=== PATIENT | female | born 1980 | race Two or more races ===

== ENCOUNTER 2017-03-23 20:14 | Emergency (ER) | payer MEDICARE, OTHER ==
[~2017-03-23] VITALS: Ht 172.7 cm; Wt 62.1 kg
[2017-03-23 20:20] VITALS: BP 108/61
--- NOTE | 2017-03-23 20:36 | NUR ---
TO BED 4 AMBULATORY C/O C/O LLQ ABD PAIN RADIATING TO BACK WITH PAIN BURNING AND FREQUENCY UPON URINATION SINCE YESTERDAY. URINE SAMPLE COLLECTED AND SENT TO LAB.
[2017-03-23 21:21] LABS: APPEARANCE,URINE Slightly Cloudy (CLEAR); BILIRUBIN,URINE Negative (NEGATIVE); BLOOD, URINE Trace-intact Ery/uL (NEGATIVE); COLOR,URINE Yellow (YELLOW); KETONES,URINE Negative (NEGATIVE); LEUKOCYTE ESTERASE ,URINE Moderate (NEGATIVE); NITRITE, URINE Positive (NEGATIVE); PH,URINE 5.5 (5.0-8.0); PROTEIN,URINE Negative (NEGATIVE); UGLUCOSE Negative (NEGATIVE); UROBILINOGEN,URINE 0.2 EU/dL (0.2)
[2017-03-23 21:37] LABS: BACTERIA,URINE Many /HPF (None Seen); SQUAMOUS EPITHELIAL CELL,UR Many /HPF (None Seen)
== END 2017-03-23 21:49 | disposition home or self-care (01) ==
LOC: ER 20:33
DX: N39.0 Urinary tract infection, site not specified (principal); G35 Multiple sclerosis
CPT/HCPCS: 81001; 87077; 87086; 87186; 99284; A4606; 81000-TC; Z7610

== ENCOUNTER 2017-05-18 12:45 | Emergency (ER) | payer MEDICARE, OTHER ==
[~2017-05-18] VITALS: Ht 172.7 cm; Wt 59.0 kg
[2017-05-18 12:58] VITALS: BP 103/61
[2017-05-18] MEDS ORDERED: NUEDEXTA (13:03)
[2017-05-18] MEDS ORDERED: VESICARE TAB 10MG (13:03)
[2017-05-18] MEDS ORDERED: CIPROFLOXACIN 500 MG (13:03)
[2017-05-18] MEDS ORDERED: CEPHALEXIN CAP 500MG (13:03)
== END 2017-05-18 14:27 | disposition home or self-care (01) ==
LOC: ER 12:47
DX: J06.9 Acute upper respiratory infection, unspecified (principal); N39.0 Urinary tract infection, site not specified; G35 Multiple sclerosis
CPT/HCPCS: A4606; Z7610

== ENCOUNTER 2018-02-17 10:41 | Emergency (ER) | payer MEDICARE, OTHER ==
[~2018-02-17] VITALS: Ht 170.2 cm; Wt 61.2 kg
[~2018-02-17 10:41] MED LIST: CEPHALEXIN CAP 500MG; CIPROFLOXACIN 500 MG; NUEDEXTA; VESICARE TAB 10MG
--- NOTE | 2018-02-17 10:48 | NUR ---
AAOX3, CAME TO ER C/O BILATERAL FLANK PAIN X 3 DAYS. RR IS EVEN AND UNLABORED WITH NAD NOTED. SKIN IS WARM AND DRY . AWAITING MD FOR EVAL.
--- NOTE | 2018-02-17 10:55 | NUR ---
DR MCALLISTER AT BS FOR EVAL.
[2018-02-17] MEDS ORDERED: HYDROCODONE/APAP 5/325MG 1 EACH TABLET PO ONE (11:00)
[2018-02-17] MEDS ORDERED: METOCLOPRAMIDE HCL 10 MG/2 ML VIAL IV ONE (11:00)
[2018-02-17] MEDS ORDERED: METOCLOPRAMIDE HCL 10 MG/2 ML VIAL ONE (11:02)
[2018-02-17] MEDS ORDERED: HYDROCODONE/APAP 5/325MG 1 EACH TABLET ONE (11:03)
--- NOTE | 2018-02-17 11:11 | NUR ---
URINE SPECIMEN OBTAINED , LABELED AND SENT TO LAB ,
[2018-02-17 11:12] LABS: APPEARANCE,URINE Cloudy (CLEAR); BILIRUBIN,URINE Negative (NEGATIVE); BLOOD, URINE Trace-intact Ery/uL (NEGATIVE); COLOR,URINE Yellow (YELLOW); KETONES,URINE Negative (NEGATIVE); LEUKOCYTE ESTERASE ,URINE Moderate (NEGATIVE); NITRITE, URINE Positive (NEGATIVE); PH,URINE 5.5 (5.0-8.0); PROTEIN,URINE Negative (NEGATIVE); UGLUCOSE Negative (NEGATIVE); UROBILINOGEN,URINE 0.2 EU/dL (0.2)
[2018-02-17 11:14] LABS: BASOPHILS % (AUTO) 0.4 % (0.0-2.0); EOSINOPHILS % (AUTO) 0.8 % (0.0-6.0); HEMATOCRIT 34 % (33-45); LYMPHOCYTES # (AUTO) 0.7 /CMM (0.8-4.8); LYMPHOCYTES % (AUTO) 19.6 % (20.0-44.0); MEAN CORPUSCULAR HGB CONC 33 g/dl (31.0-36.0); MEAN CORPUSCULAR VOLUME 78 fL (82-100); MONOCYTES # (AUTO) 0.2 /CMM (0.1-1.30); MONOCYTES % (AUTO) 6.1 % (2.0-12.0); NEUTROPHILS # (AUTO) 2.6 /CMM (1.8-8.9); NEUTROPHILS % (AUTO) 73.1 % (43.0-81.0); PLATELET COUNT (AUTO) 225 /CMM (150-450); RDW COEFFICIENT OF VARIATION 13.8 (11.5-15.0); RED BLOOD CELL COUNT(AUTO) 4.33 MIL/uL (4.0-5.2); WHITE BLOOD COUNT (AUTO) 3.5 K/uL (4.3-11.0)
[2018-02-17 11:25] LABS: BACTERIA,URINE 3+ /HPF (None Seen); SQUAMOUS EPITHELIAL CELL,UR Few /HPF (None Seen); WBC,URINE 21-50 /HPF (0-3)
[2018-02-17 11:25] LABS: CALCIUM, SERUM 8.8 mg/dL (8.5-10.1); CREATININE 0.6 mg/dL (0.6-1.3); POTASSIUM 3.5 mmol/L (3.5-5.1)
[2018-02-17 11:30] LABS: ALBUMIN 3.7 g/dL (3.4-5.0); BILIRUBIN,DIRECT 0.1 mg/dL (0.0-0.2); BILIRUBIN,TOTAL 0.2 mg/dL (0.2-1.0)
--- NOTE | 2018-02-17 12:52 | NUR ---
Patient discharged to home in stable condition. Written and verbal after care instructions given. Patient verbalizes understanding of instruction.IV removed. Catheter intact and site benign. Pressure and 4x4 applied to site. No bleeding noted.
[2018-02-17 12:53] VITALS: BP 110/55
== END 2018-02-17 12:53 | disposition home or self-care (01) ==
LOC: ER 10:44
DX: N39.0 Urinary tract infection, site not specified (principal); G35 Multiple sclerosis; Z60.2 Problems related to living alone
CPT/HCPCS: 36415; 80048; 80076; 81001; 83605; 83690; 84703; 85025; 87040 ×2; 87077; 87086; 87186; 96374; 99284; A4216; A4606; J2765; 81000-TC; Z7610

== ENCOUNTER 2018-08-28 16:26 | Emergency (ER) | payer MEDICARE, MEDICAID ==
[~2018-08-28] VITALS: Ht 172.7 cm; Wt 62.6 kg
--- NOTE | 2018-08-28 17:53 | NUR ---
PATIENT PRESENTED TO THE ER GENERALIZED BODY ACHES, UNSTEADY GAIT FRM MS FLARE UP. ON ROOM AIR, BREATHING EVENLY AND UNLABORED. CONNECTED TO THE MONITOR AND PULSE OX. KEPT COMFORTABLE, WILL CONTINUE TO MONITOR ACCORDINGLY.
[2018-08-28 18:24] LABS: APPEARANCE,URINE Clear (CLEAR); BILIRUBIN,URINE Negative (NEGATIVE); BLOOD, URINE Negative Ery/uL (NEGATIVE); COLOR,URINE Yellow (YELLOW); KETONES,URINE Negative (NEGATIVE); LEUKOCYTE ESTERASE ,URINE Negative (NEGATIVE); NITRITE, URINE Negative (NEGATIVE); PROTEIN,URINE Negative (NEGATIVE); UGLUCOSE Negative (NEGATIVE); UROBILINOGEN,URINE 0.2 EU/dL (0.2)
[2018-08-28] MEDS ORDERED: HYDROCODONE/APAP 10/325MG 1 EA TABLET ONE (18:25)
[2018-08-28] MEDS ORDERED: HYDROCODONE/APAP 10/325MG 1 EA TABLET PO ONE (18:30)
[2018-08-28 18:38] LABS: BASOPHILS % (AUTO) 0.3 % (0.0-2.0); EOSINOPHILS % (AUTO) 0.5 % (0.0-6.0); HEMATOCRIT 35 % (33-45); HEMOGLOBIN 11.5 g/dL (11.5-14.8); LYMPHOCYTES # (AUTO) 0.8 /CMM (0.8-4.8); LYMPHOCYTES % (AUTO) 10.7 % (20.0-44.0); MEAN CORPUSCULAR HGB CONC 33 g/dl (31.0-36.0); MEAN CORPUSCULAR VOLUME 78 fL (82-100); MONOCYTES # (AUTO) 0.3 /CMM (0.1-1.30); MONOCYTES % (AUTO) 3.7 % (2.0-12.0); NEUTROPHILS % (AUTO) 84.8 % (43.0-81.0); PLATELET COUNT (AUTO) 268 /CMM (150-450); RED BLOOD CELL COUNT(AUTO) 4.49 MIL/uL (4.0-5.2); WHITE BLOOD COUNT (AUTO) 7.1 K/uL (4.3-11.0)
[2018-08-28 19:01] LABS: CALCIUM, SERUM 8.7 mg/dL (8.5-10.1); CREATININE 0.6 mg/dL (0.6-1.3)
--- NOTE | 2018-08-28 19:10 | NUR ---
RECEIVED REPORT FROM ANTONIO HAIDER FOR [facility]
[2018-08-28] MEDS ORDERED: KETOROLAC TROMETHAMINE INJ 30 MG/ML VIAL ONE (19:16)
[2018-08-28] MEDS ORDERED: KETOROLAC TROMETHAMINE INJ 30 MG/ML VIAL IM ONE (19:30)
[2018-08-28 20:44] VITALS: BP 110/67
--- NOTE | 2018-08-28 20:45 | NUR ---
Patient discharged to home in stable condition. Written and verbal after care instructions given. Patient verbalizes understanding of instruction.
== END 2018-08-28 20:20 | disposition home or self-care (01) ==
LOC: ER 16:26
DX: M79.10 Myalgia, unspecified site (principal); G35 Multiple sclerosis; Z60.2 Problems related to living alone
CPT/HCPCS: 36415; 80048; 81001; 84703; 85025; 93005; 96372; 99284; J1885; J7030; 81000-TC

== ENCOUNTER 2019-04-16 07:58 | Emergency (ER) | payer MEDICARE, MEDICAID ==
[~2019-04-16] VITALS: Ht 172.7 cm; Wt 59.0 kg
[2019-04-16 08:05] VITALS: BP 104/68
[2019-04-16] MEDS ORDERED: diphenhydrAMINE HCL 25 MG CAPSULE ONE (08:27)
[2019-04-16] MEDS ORDERED: CEPHALEXIN MONOHYDRATE 500 MG CAPSULE PO ONE ×2 (08:27→08:30)
[2019-04-16] MEDS ORDERED: PHENAZOPYRIDINE HCL 200 MG TABLET ONE (08:27)
[2019-04-16] MEDS ORDERED: PHENAZOPYRIDINE HCL 200 MG TABLET PO ONE (08:30)
[2019-04-16] MEDS ORDERED: diphenhydrAMINE HCL 25 MG CAPSULE PO ONE (08:30)
[2019-04-16 09:07] LABS: APPEARANCE,URINE Clear (CLEAR); BILIRUBIN,URINE Negative (NEGATIVE); BLOOD, URINE Trace-lysed Ery/uL (NEGATIVE); COLOR,URINE Yellow (YELLOW); KETONES,URINE Negative (NEGATIVE); LEUKOCYTE ESTERASE ,URINE Moderate (NEGATIVE); NITRITE, URINE Negative (NEGATIVE); PH,URINE 8.5 (5.0-8.0); PROTEIN,URINE Negative (NEGATIVE); UGLUCOSE Negative (NEGATIVE); UROBILINOGEN,URINE 0.2 EU/dL (0.2)
[2019-04-16 09:10] LABS: BACTERIA,URINE Few /HPF (None Seen); WBC,URINE 0-2 /HPF (0-3)
[2019-04-16 09:11] LABS: SQUAMOUS EPITHELIAL CELL,UR Few /HPF (None Seen)
--- NOTE | 2019-04-16 09:21 | NUR ---
unable to depart from system.
== END 2019-04-16 09:23 | disposition home or self-care (01) ==
LOC: ER 08:00
DX: T78.40XA Allergy, unspecified, initial encounter (principal); N39.0 Urinary tract infection, site not specified; G35 Multiple sclerosis; Z60.2 Problems related to living alone; X58.XXXA Exposure to other specified factors, initial encounter
CPT/HCPCS: 81001; 84703; 87086; 99284; Q0163; 81000-TC; 87186-TC

== ENCOUNTER 2021-12-18 16:41 | Emergency (ER) | payer MEDICARE, OTHER ==
[~2021-12-18] VITALS: Ht 172.7 cm; Wt 66.2 kg
[~2021-12-18 16:41] MED LIST changes: +CEPH250C PO; -CEPHALEXIN CAP 500MG; -CIPROFLOXACIN 500 MG; +DALF10TA PO; -NUEDEXTA; +TOPI50TA24 PO; -VESICARE TAB 10MG
--- NOTE | 2021-12-18 16:50 | NUR ---
BIBS W/ C/O FEVER AND SOB SINCE LAST NIGHT. PT A/O X4, AMBULATORY, TO ER BED 12.
[2021-12-18 17:47] LABS: BILIRUBIN,URINE NEGATIVE (NEGATIVE); COLOR,URINE YELLOW (YELLOW); LEUKOCYTE ESTERASE ,URINE NEGATIVE (NEGATIVE); NITRITE, URINE POSITIVE (NEGATIVE); PROTEIN,URINE NEGATIVE (NEGATIVE); UGLUCOSE NEGATIVE (NEGATIVE); UROBILINOGEN,URINE 0.2 EU/dL (0.2)
[2021-12-18 18:05] LABS: BACTERIA,URINE 4+ /HPF (None Seen); SQUAMOUS EPITHELIAL CELL,UR Few /HPF (None Seen)
[2021-12-18] MEDS ORDERED: CEPH500C2 PO (18:45)
[2021-12-18 18:50] VITALS: BP 120/71
--- NOTE | 2021-12-18 18:51 | NUR ---
Patient discharged to home in stable condition. Written and verbal after care instructions given. Patient verbalizes understanding of instruction.
== END 2021-12-18 18:51 | disposition home or self-care (01) ==
LOC: ER 17:07
DX: N39.0 Urinary tract infection, site not specified (principal); Z82.49 Family history of ischemic heart disease and other diseases of the circulatory system; G35 Multiple sclerosis; Z79.899 Other long term (current) drug therapy; Z86.69 Personal history of other diseases of the nervous system and sense organs
CPT/HCPCS: 81001; 84703-TC; 87086-TC; 87186-TC; C9803

== ENCOUNTER 2022-06-13 19:18 | Emergency (ER) | payer MEDICARE, OTHER ==
[~2022-06-13] VITALS: Ht 172.7 cm; Wt 64.4 kg
[~2022-06-13 19:18] MED LIST changes: +CEPH500C2 PO
--- NOTE | 2022-06-13 21:10 | NUR ---
BIBS FOR MECH TRIP AND FALL +HT +KO S/P "MS FLARE UP, EXTREME BODY PAIN X3 WEEKS. - BLOOD THINNERS. PATIENT IS AAOX4, AMBULATES BUT CONTACT GUARD. ABLE TO MAKE NEEDS KNOWN. PLACED COMFORTABLY IN BED. VITALS CHECKED.
[2022-06-13] MEDS ORDERED: ONDANSETRON 4 MG TAB.RAPDIS SL ONE (21:30)
[2022-06-13] MEDS ORDERED: ACETAMINOPHEN ES 500 MG TABLET PO ONE (21:30)
--- NOTE | 2022-06-13 21:30 | NUR ---
[facility]IVER SIGNED BY PATIENT THAT SHE IS NOT .
--- NOTE | 2022-06-13 21:32 | NUR ---
PT TAKEN TO CT VIA [facility]
[2022-06-13] MEDS ORDERED: ACETAMINOPHEN ES 500 MG TABLET ONE (21:38)
[2022-06-13] MEDS ORDERED: ONDANSETRON 4 MG TAB.RAPDIS ONE (21:38)
--- NOTE | 2022-06-13 21:47 | NUR ---
PT RETURNED TO ER [address]
[2022-06-13] MEDS ORDERED: ONDA4TAB5 PO (22:22)
[2022-06-13 22:47] VITALS: BP 121/66
--- NOTE | 2022-06-13 22:47 | NUR ---
Patient discharged to home in stable condition. Written and verbal after care instructions given. Patient verbalizes understanding of instruction.
== END 2022-06-13 22:49 | disposition home or self-care (01) ==
LOC: ER 19:21
DX: S09.90XA Unspecified injury of head, initial encounter (principal); G35 Multiple sclerosis; F41.9 Anxiety disorder, unspecified; Z60.2 Problems related to living alone; Z79.899 Other long term (current) drug therapy; W01.0XXA Fall on same level from slipping, tripping and stumbling without subsequent striking against object, initial encounter; Y93.89 Activity, other specified; Y92.89 Other specified places as the place of occurrence of the external cause; Y99.8 Other external cause status
CPT/HCPCS: 99284; 70450; Q0162

== ENCOUNTER 2022-10-08 19:42 | Emergency (ER) | payer MEDICARE, OTHER ==
[~2022-10-08] VITALS: Ht 172.7 cm; Wt 63.5 kg
[~2022-10-08 19:42] MED LIST changes: +ONDA4TAB5 PO
--- NOTE | 2022-10-08 20:28 | NUR ---
BIBS FOR VAGINAL BLEEDING X 1 MONTH S/P 1 MONTH AGO
[2022-10-08] MEDS ORDERED: IV NS 0.9% 1,000 ML BAG IV ONE (21:30)
[2022-10-08 21:41] LABS: BASOPHILS % (AUTO) 0.2 % (0.0-2.0); EOSINOPHILS % (AUTO) 0.1 % (0.0-6.0); HEMATOCRIT 30 % (33-45); HEMOGLOBIN 9.5 g/dL (11.5-14.8); LYMPHOCYTES # (AUTO) 0.5 K/uL (0.8-4.8); LYMPHOCYTES % (AUTO) 9.3 % (20.0-44.0); MEAN CORPUSCULAR HGB CONC 32 g/dl (31.0-36.0); MEAN CORPUSCULAR VOLUME 78 fL (82-100); MONOCYTES # (AUTO) 0.3 K/uL (0.1-1.30); MONOCYTES % (AUTO) 5.2 % (2.0-12.0); NEUTROPHILS # (AUTO) 4.9 K/uL (1.8-8.9); NEUTROPHILS % (AUTO) 85.2 % (43.0-81.0); PLATELET COUNT (AUTO) 265 K/uL (150-450); RED BLOOD CELL COUNT(AUTO) 3.82 MIL/uL (4.0-5.2); WHITE BLOOD COUNT (AUTO) 5.8 K/uL (4.3-11.0)
--- NOTE | 2022-10-08 21:44 | NUR ---
US TECH AT PT'S BEDSIDE
[2022-10-08 21:51] LABS: CALCIUM, SERUM 9.4 mg/dL (8.5-10.1); CREATININE 0.6 mg/dL (0.6-1.3); POTASSIUM 3.5 mmol/L (3.5-5.1)
--- NOTE | 2022-10-08 22:09 | NUR ---
URINE COLLECTED AND SENT TO LAB
[2022-10-08 22:41] LABS: BILIRUBIN,URINE NEGATIVE (NEGATIVE); COLOR,URINE YELLOW (YELLOW); LEUKOCYTE ESTERASE ,URINE NEGATIVE (NEGATIVE); NITRITE, URINE NEGATIVE (NEGATIVE); PROTEIN,URINE NEGATIVE (NEGATIVE); UGLUCOSE NEGATIVE (NEGATIVE); UROBILINOGEN,URINE 0.2 EU/dL (0.2)
[2022-10-08 23:14] LABS: BACTERIA,URINE Rare /HPF (None Seen); RBC,URINE 21-50 /HPF (0-2); SQUAMOUS EPITHELIAL CELL,UR Rare /HPF (None Seen); WBC,URINE 0-2 /HPF (0-3)
[2022-10-08] MEDS ORDERED: KETOROLAC TROMETHAMINE INJ 30 MG/ML VIAL ONE (23:19)
[2022-10-08] MEDS ORDERED: KETOROLAC TROMETHAMINE INJ 60 MG/2 ML VIAL IM ONE (23:30)
[2022-10-08 23:32] VITALS: BP 124/70
== END 2022-10-08 23:36 | disposition home or self-care (01) ==
LOC: ER 20:11
DX: N93.8 Other specified abnormal uterine and vaginal bleeding (principal); D64.9 Anemia, unspecified; R10.2 Pelvic and perineal pain; Z79.899 Other long term (current) drug therapy
CPT/HCPCS: 99285; 96360; 76856; 96361; 85025; 80048; 81001; 36415; 85730; 84702; 96372; J1885

== ENCOUNTER 2023-05-25 19:30 | Inpatient (IN) | payer MEDICARE, OTHER ==
[~2023-05-25] VITALS: Ht 172.7 cm; Wt 62.1 kg
[2023-05-25] MEDS: IV NS 0.9% 1,000 ML BAG IV ONE (20:54)
[2023-05-25 21:07] LABS: EOSINOPHILS % (AUTO) 1.7 % (0.0-6.0); HEMATOCRIT 31 % (33-45); HEMOGLOBIN 9.9 g/dL (11.5-14.8); LYMPHOCYTES # (AUTO) 0.8 K/uL (0.8-4.8); LYMPHOCYTES % (AUTO) 28.2 % (20.0-44.0); MEAN CORPUSCULAR HEMOGLOBIN 24 PG (26.0-33.0); MEAN CORPUSCULAR HGB CONC 32 g/dl (31.0-36.0); MEAN CORPUSCULAR VOLUME 76 fL (82-100); MONOCYTES # (AUTO) 0.3 K/uL (0.1-1.30); MONOCYTES % (AUTO) 9.6 % (2.0-12.0); NEUTROPHILS # (AUTO) 1.6 K/uL (1.8-8.9); NEUTROPHILS % (AUTO) 59.5 % (43.0-81.0); PLATELET COUNT (AUTO) 226 K/uL (150-450); RED BLOOD CELL COUNT(AUTO) 4.13 MIL/uL (4.0-5.2); RED CELL DISTRIBUTION WIDTH 16.8 % (11.5-15.0); WHITE BLOOD COUNT (AUTO) 2.7 K/uL (4.3-11.0)
[2023-05-25] MEDS ORDERED: KETOROLAC TROMETHAMINE INJ 30 MG/ML VIAL ONE (21:10)
[2023-05-25] MEDS: KETOROLAC TROMETHAMINE INJ 60 MG/2 ML VIAL IM ONE (21:12)
[2023-05-25 21:18] LABS: CALCIUM, SERUM 8.9 mg/dL (8.5-10.1); CREATININE 0.6 mg/dL (0.6-1.3); POTASSIUM 3.8 mmol/L (3.5-5.1)
[2023-05-25 21:24] LABS: ALBUMIN 3.6 g/dL (3.4-5.0); BILIRUBIN,DIRECT 0.1 mg/dL (0.0-0.2); BILIRUBIN,TOTAL 0.2 mg/dL (0.2-1.0); TOTAL PROTEIN, SERUM 7.6 g/dL (6.4-8.2)
[2023-05-25 22:09] LABS: APPEARANCE,URINE CLEAR (CLEAR); BILIRUBIN,URINE NEGATIVE (NEGATIVE); BLOOD, URINE NEGATIVE Ery/uL (NEGATIVE); COLOR,URINE YELLOW (YELLOW); KETONES,URINE NEGATIVE (NEGATIVE); LEUKOCYTE ESTERASE ,URINE NEGATIVE (NEGATIVE); NITRITE, URINE NEGATIVE (NEGATIVE); PH,URINE 7.5 (5.0-8.0); PROTEIN,URINE NEGATIVE (NEGATIVE); UGLUCOSE NEGATIVE (NEGATIVE); UROBILINOGEN,URINE 0.2 EU/dL (0.2)
[2023-05-25 22:12] LABS: PREGNANCY TEST URINE QUAL NEGATIVE (NEGATIVE)
[2023-05-26] MEDS ORDERED: ZOLPIDEM TARTRATE 5 MG TABLET PO PRN (01:30)
[2023-05-26] MEDS ORDERED: MAG HYDROX/AL HYDROX/SIMETH 30 ML UDC PO PRN (01:30)
[2023-05-26] MEDS ORDERED: MAGNESIUM HYDROXIDE 30 ML UDC PO PRN (01:30)
[2023-05-26] MEDS ORDERED: Z GUARD REMEDY 4 OZ OINT TP PRN (01:30)
[2023-05-26] MEDS ORDERED: ACETAMINOPHEN 325 MG TABLET ONE ×2 (03:37→11:26)
[2023-05-26] MEDS: ACETAMINOPHEN 325 MG TABLET PO PRN (03:41)
[2023-05-26] MEDS: ONDANSETRON HCL/PF 4 MG/2 ML VIAL IVP PRN (03:47)
[2023-05-26] MEDS ORDERED: MODAFINIL PO (08:08)
[2023-05-26] MEDS ORDERED: PRUNELAX PO (08:08)
[2023-05-26] MEDS ORDERED: ARIP10TA9 PO (08:08)
[2023-05-26] MEDS ORDERED: TOLT4CAP PO (08:08)
[2023-05-26] MEDS ORDERED: LINA290C PO (08:08)
[2023-05-26] MEDS ORDERED: OXYB15TA19 PO (08:08)
[2023-05-26] MEDS ORDERED: BACL10TA PO (08:08)
[2023-05-26] MEDS ORDERED: DULO60CA45 PO (08:08)
[2023-05-26] MEDS ORDERED: PANTOPRAZOLE 40 MG VIAL ONE (08:54)
[2023-05-26] MEDS ORDERED: TOPIRAMATE 25 MG TABLET ONE (08:54)
[2023-05-26] MEDS: PANTOPRAZOLE 40 MG VIAL IV SCH (08:59)
[2023-05-26] MEDS: TOPIRAMATE 25 MG TABLET PO SCH (09:00)
[2023-05-26] MEDS ORDERED: Medication Not On Formulary EA (Dalfampridine (Ampyra) 10 MG) PO SCH (09:00)
[2023-05-26 09:41] LABS: CALCIUM, SERUM 9.2 mg/dL (8.5-10.1); CREATININE 0.5 mg/dL (0.6-1.3); MAGNESIUM 2.4 mg/dL (1.8-2.4); PHOSPHORUS 4.3 mg/dL (2.5-4.9); POTASSIUM 4.8 mmol/L (3.5-5.1)
[2023-05-26 09:46] LABS: THYROID STIMULATING HORMONE 1.381 uIU/mL (0.358-3.74)
[2023-05-26 11:23] LABS: BASOPHILS % (AUTO) 0.5 % (0.0-2.0); EOSINOPHILS % (AUTO) 0.7 % (0.0-6.0); HEMATOCRIT 32 % (33-45); HEMOGLOBIN 10.4 g/dL (11.5-14.8); LYMPHOCYTES # (AUTO) 0.6 K/uL (0.8-4.8); LYMPHOCYTES % (AUTO) 17.1 % (20.0-44.0); MEAN CORPUSCULAR HEMOGLOBIN 25 PG (26.0-33.0); MEAN CORPUSCULAR HGB CONC 33 g/dl (31.0-36.0); MEAN CORPUSCULAR VOLUME 76 fL (82-100); MONOCYTES # (AUTO) 0.2 K/uL (0.1-1.30); MONOCYTES % (AUTO) 6.9 % (2.0-12.0); NEUTROPHILS # (AUTO) 2.5 K/uL (1.8-8.9); NEUTROPHILS % (AUTO) 74.8 % (43.0-81.0); PLATELET COUNT (AUTO) 226 K/uL (150-450); RED BLOOD CELL COUNT(AUTO) 4.19 MIL/uL (4.0-5.2); RED CELL DISTRIBUTION WIDTH 16.5 % (11.5-15.0); WHITE BLOOD COUNT (AUTO) 3.3 K/uL (4.3-11.0)
[2023-05-26 12:17] VITALS: BP 114/70; TEMP 97.8; O2SAT 98
== END 2023-05-26 12:13 | disposition left against medical advice (07) | DRG 60 ==
LOC: ER 19:38 → TRANSITION 05-26 07:36
PROVIDERS: ADMIT Internal Medicine; ATTEND Internal Medicine
DX: G35 Multiple sclerosis (principal); R55 Syncope and collapse; D63.8 Anemia in other chronic diseases classified elsewhere; D72.819 Decreased white blood cell count, unspecified; R52 Pain, unspecified
CPT/HCPCS: 36415; 70450-TC; 80048-TC; 80076-TC; 83735-TC; 84100-TC; 84443-TC; 84484-TC; 84703-TC; 85025-TC; A4223; C9113; G0378; J1885; J7030